=== PATIENT | male | born 1975 | race Caucasian/White ===

== ENCOUNTER 2024-04-04 07:12 | Day surgery (SDC) | payer OTHER ==
[~2024-04-04] VITALS: Ht 185.4 cm; Wt 97.8 kg
[2024-04-04] MEDS ORDERED: ZONI100 (07:25)
[2024-04-04] MEDS ORDERED: TAMS.4ER (07:25)
[2024-04-04] MEDS ORDERED: ATOR40TA (07:26)
[2024-04-04] MEDS ORDERED: ACET500 (07:26)
[2024-04-04] MEDS ORDERED: TRAZ50 (07:26)
[2024-04-04] MEDS ORDERED: FISH OIL 1,0001 EA10 (07:26)
[2024-04-04] MEDS ORDERED: OMEP20ER (07:26)
[2024-04-04] MEDS ORDERED: TERB250 (07:27)
[2024-04-04] MEDS ORDERED: Lactated Ringer's 1,000 ML IV ONE ×2 (08:16→08:27)
[2024-04-04] MEDS ORDERED: Lidocaine HCl/Pf 1% 5 ML VIAL ONE (08:27)
[2024-04-04] MEDS ORDERED: propofoL 50 ML IV ONE (08:27)
[2024-04-04 09:51] VITALS: BP 113/75
== END 2024-04-04 09:45 | disposition home or self-care (01) ==
LOC: ORSCSDS 07:12
PROVIDERS: Internal Medicine Gastroenterology
PROC: 0DJD8ZZ Inspection of Lower Intestinal Tract, Via Natural or Artificial Opening Endoscopic (ICD-10-PCS; principal; 2024-04-04 08:30)
PROC: 0DB68ZX Excision of Stomach, Via Natural or Artificial Opening Endoscopic, Diagnostic (ICD-10-PCS; principal; 2024-04-04 08:30)
DX: K21.9 Gastro-esophageal reflux disease without esophagitis (principal); K29.70 Gastritis, unspecified, without bleeding; Z12.11 Encounter for screening for malignant neoplasm of colon; K57.30 Diverticulosis of large intestine without perforation or abscess without bleeding; Z79.899 Other long term (current) drug therapy
CPT/HCPCS: 88305; 88342; J2001; J2704; J7120